=== PATIENT | female | born 1950 | race Caucasian/White ===

== ENCOUNTER 2018-05-23 06:49 | Day surgery (SDC) | payer MEDICARE, OTHER ==
[~2018-05-23] VITALS: Ht 166.4 cm; Wt 66.5 kg
[2018-05-23 07:20] VITALS: BP 152/78
[2018-05-23] MEDS ORDERED: SODIUM CHLORIDE 0.9% 1,000 ML IV SCH (07:24)
[2018-05-23] MEDS ORDERED: CEFAZOLIN PMX 1GM/50ML 50 ML IV ONE (07:30)
[2018-05-23] MEDS ORDERED: MIDAZOLAM 1 MG/ML, 5ML ONE (07:58)
[2018-05-23] MEDS ORDERED: FENTANYL PF 100 MCG/2ML ONE (07:58)
[2018-05-23] MEDS ORDERED: LIDOCAINE 1%, 20ML ONE (08:02)
== END 2018-05-23 11:15 | disposition home or self-care (01) ==
LOC: OUT 06:49
PROVIDERS: ATTEND Specialist
DX: Z45.2 Encounter for adjustment and management of vascular access device (principal); C83.01 Small cell B-cell lymphoma, lymph nodes of head, face, and neck; I10 Essential (primary) hypertension; E11.9 Type 2 diabetes mellitus without complications; E78.5 Hyperlipidemia, unspecified; Z87.39 Personal history of other diseases of the musculoskeletal system and connective tissue; Z98.890 Other specified postprocedural states; Z88.8 Allergy status to other drugs, medicaments and biological substances; Z79.84 Long term (current) use of oral hypoglycemic drugs
CPT/HCPCS: 36561; 76937; 77001; 82962; 99156; 99157; C1788; C1894; J0690; J1642; J2250; J3010; J3490; J7030